=== PATIENT | female | born 1985 ===

== ENCOUNTER 2021-02-01 04:35 | Emergency (ER) | payer MEDICAID ==
--- NOTE | 2021-02-01 05:04 | EDM.PDOC ---
ED HPI GENERAL MEDICAL PROBLEM - General Chief Complaint: Abdominal Pain Stated Complaint: ABDOMINAL PAIN Time Seen by Provider: 02/01/21 04:45 Source of Information: Reports: Patient, EMS, RN History Limitations: Reports: Other (pain) - History of Present Illness INITIAL COMMENTS - FREE TEXT/NARRATIVE: Ms. Miranda presented to the ED w RUQ pain, started this AM an hour before arrival. She is a Diabetic with a cardiac history of congestive changes. She presents with sats in the 70s, tachypnea and has a fever. She has not taken anything for her symptoms. She ate a ham sandwich last night for dinner. Normal HRR, Lungs are CTA. No abdominal guarding. She is alert and oriented X 3. Onset: Today, Sudden Onset Date: 02/01/21 Onset Time: 03:00 Duration: Hour(s):, Constant Location: Reports: Chest, Abdomen Quality: Reports: Ache, Dull Severity: Moderate Improves with: Reports: None Worsens with: Reports: None Associated Symptoms: Reports: Chest Pain, Fever/Chills, Other (hypoxic) Right Abdominal Pain Score (Numeric/FACES): 10 - Related Data Allergies Allergy/AdvReac Type Severity Reaction Status Date / Time No Known Allergies Allergy Verified 02/01/21 05:12 Home Meds: Home Meds Aspirin [Ecotrin EC] 81 mg PO DAILY 02/01/21 [History] Escitalopram [Lexapro] 10 mg PO DAILY 02/01/21 [History] Ferrous Sulfate 325 mg PO DAILY 02/01/21 [History] Insulin Detemir [Levemir Flextouch] 20 units SQ BEDTIME 02/01/21 [History] Potassium Chloride [Klor-Con M20] 20 meq PO BID 02/01/21 [History] lisinopriL [Lisinopril] 10 mg PO DAILY 02/01/21 [History] ED ROS GENERAL - Review of Systems Review Of Systems: Comprehensive ROS is negative, except as noted in HPI. Respiratory: Reports: Shortness of Breath Cardiovascular: Reports: Chest Pain GI/Abdominal: Reports: Abdominal Pain Skin: Reports: Bruising ED EXAM, GI/ABD - Physical Exam Exam: See Below Exam Limited By: Other (pain) Eyes: Bilateral: Normal Appearance Ears: Normal External Exam Nose: Normal Inspection, Normal Mucosa, No Blood Throat/Mouth: Normal Inspection, Normal Lips, Other (poor dentition) Head: Atraumatic, Normocephalic Neck: Supple, Non-Tender Respiratory/Chest: Lungs Clear, Normal Breath Sounds, Wheezing, Other ( tackypnea) Cardiovascular: Regular Rate, Rhythm, No Edema GI/Abdominal Exam: Normal Bowel Sounds, Soft, Distended (Female) Exam: Deferred Rectal (Female) Exam: Deferred Back Exam: Other (unable to evaluate) Extremities: Normal Inspection, No Pedal Edema Neurological: Alert, Oriented, CN II-XII Intact, Normal Cognition Psychiatric: Normal Affect, Normal Mood Skin Exam: Warm, Dry, Intact, Other (easy bruising) Lymphatic: No Adenopathy #1 Interpretation EKG Date: 02/01/21 Time: 04:50 Rhythm: NSR Course - Vital Signs Last Recorded V/S: Last Vital Signs Temp 37.5 C 02/01/21 05:00 Pulse 100 02/01/21 05:00 Resp 20 02/01/21 05:00 BP 122/54 L 02/01/21 05:00 Pulse Ox 99 02/01/21 05:00 - Orders/Labs/Meds Orders: Active Orders 24 hr Category Date Time Status EKG Documentation Completion [RC] STAT Care 02/01/21 04:50 Active Chest Abdomen Pelvis w Cont [CT] Stat Exams 02/01/21 04:50 Ordered DD [D-DIMER QUANTITATIVE] [COAG] Stat Lab 02/01/21 05:58 Ordered EKG 12 Lead [EK] Routine Ther 02/01/21 04:50 Ordered Labs: Laboratory Tests 02/01/21 02/01/21 02/01/21 Range/Units 04:56 05:00 05:00 WBC 7.8 (4.0-11.0) K/uL RBC 4.52 (3.80-5.80) M/uL Hgb 11.3 L (11.5-16.5) g/dL Hct 38.4 (37.0-47.0) % MCV 85 (76-96) fL MCH 25.0 L (27.0-32.0) pg MCHC 29.4 L (31.0-35.0) g/dL RDW 22.9 H (11.0-16.0) % Plt Count 322 (150-500) K/uL MPV 9.2 (6.0-10.0) fL Neut % (Auto) 68.0 (45.0-70.0) % Lymph % (Auto) 24.6 (20.0-40.0) % Adams % (Auto) 6.6 (3.0-10.0) % Eos % (Auto) 0.5 L (1.0-5.0) % Baso % (Auto) 0.3 (0.0-0.5) % Neut # (Auto) 5.30 (2.00-7.50) K/uL Lymph # (Auto) 1.91 (1.50-4.00) K/uL Adams # (Auto) 0.51 (0.20-0.80) K/uL Eos # (Auto) 0.04 (0.04-0.40) K/uL Baso # (Auto) 0.02 (0.02-0.10) K/uL Sodium 138 (136-145) mmol/L Potassium 4.9 (3.5-5.1) mmol/L Chloride 100 (98-107) mmol/L Carbon Dioxide 32.0 (21.0-32.0) mmol/L Anion Gap 10.9 (5.0-15.0) mmol/L BUN 9 (8-26) mg/dL Creatinine 0.82 (0.55-1.02) mg/dL Est Cr Clr Drug Dosing TNP Estimated GFR (MDRD) > 60 (>60) MLS/MIN BUN/Creatinine Ratio 11.0 (6-25) Glucose 167 H (74-100) mg/dL Calcium 7.7 L (8.5-10.1) mg/dL Total Bilirubin 0.5 (0.0-1.0) mg/dL AST 35 (15-37) U/L ALT 42 (12-78) U/L Alkaline Phosphatase 86 (46-116) U/L Total Protein 7.2 (6.4-8.2) g/dL Albumin 2.3 L (3.4-5.0) g/dL Globulin 4.9 H (2.2-4.2) g/dL Albumin/Globulin Ratio 0.5 L (0.8-2.0) HCG, Qual (NEGATIVE) SARS CoV-2 RNA Rapid TONY Positive H 02/01/21 Range/Units 05:00 WBC (4.0-11.0) K/uL RBC (3.80-5.80) M/uL Hgb (11.5-16.5) g/dL Hct (37.0-47.0) % MCV (76-96) fL MCH (27.0-32.0) pg MCHC (31.0-35.0) g/dL RDW (11.0-16.0) % Plt Count (150-500) K/uL MPV (6.0-10.0) fL Neut % (Auto) (45.0-70.0) % Lymph % (Auto) (20.0-40.0) % Adams % (Auto) (3.0-10.0) % Eos % (Auto) (1.0-5.0) % Baso % (Auto) (0.0-0.5) % Neut # (Auto) (2.00-7.50) K/uL Lymph # (Auto) (1.50-4.00) K/uL Adams # (Auto) (0.20-0.80) K/uL Eos # (Auto) (0.04-0.40) K/uL Baso # (Auto) (0.02-0.10) K/uL Sodium (136-145) mmol/L Potassium (3.5-5.1) mmol/L Chloride (98-107) mmol/L Carbon Dioxide (21.0-32.0) mmol/L Anion Gap (5.0-15.0) mmol/L BUN (8-26) mg/dL Creatinine (0.55-1.02) mg/dL Est Cr Clr Drug Dosing Estimated GFR (MDRD) (>60) MLS/MIN BUN/Creatinine Ratio (6-25) Glucose (74-100) mg/dL Calcium (8.5-10.1) mg/dL Total Bilirubin (0.0-1.0) mg/dL AST (15-37) U/L ALT (12-78) U/L Alkaline Phosphatase (46-116) U/L Total Protein (6.4-8.2) g/dL Albumin (3.4-5.0) g/dL Globulin (2.2-4.2) g/dL Albumin/Globulin Ratio (0.8-2.0) HCG, Qual Negative (NEGATIVE) SARS CoV-2 RNA Rapid TONY Meds: Medications Discontinued Medications Generic Name Dose Route Start Last Admin Trade Name Curt PRN Reason Stop Dose Admin Hydromorphone HCl 2 mg 02/01/21 05:31 Hydromorphone 2 Mg/Ml Sdv IVPUSH 02/01/21 05:32 ONETIME ONE Departure - Departure Time of Disposition: 06:40 Disposition: DC/Tfer to Acute Hospital 02 Condition: Fair Clinical Impression: COVID-19, Respiratory distress - Discharge Information *PRESCRIPTION DRUG MONITORING PROGRAM REVIEWED*: Not Applicable *COPY OF PRESCRIPTION DRUG MONITORING REPORT IN PATIENT ZAIN: Not Applicable Forms: ED Department Discharge, ED Return to Work/School Form Care Plan Goals: Patient is being transferred to Critical Care unit per Dr. King at [facility]. Sepsis Event Note (ED) - Focused Exam Vital Signs: Vital Signs Temp Pulse Resp BP Pulse Ox 02/01/21 05:00 37.5 C 100 20 122/54 L 99 - Problem List & Annotations (1) COVID-19 SNOMED Code(s): 255364816 Code(s): U07.1 - COVID-19 Status: Acute Priority: High Current Visit: Yes (2) Respiratory distress SNOMED Code(s): 046746221 Code(s): R06.03 - ACUTE RESPIRATORY DISTRESS Status: Acute Priority: High Current Visit: Yes - Problem List Review Problem List Initiated/Reviewed/Updated: Yes - My Orders Last 24 Hours: My Active Orders 02/01/21 04:50 EKG Documentation Completion [RC] STAT Chest Abdomen Pelvis w Cont [CT] Stat EKG 12 Lead [EK] Routine 02/01/21 05:58 DD [D-DIMER QUANTITATIVE] [COAG] Stat - Assessment/Plan Last 24 Hours: My Active Orders 02/01/21 04:50 EKG Documentation Completion [RC] STAT Chest Abdomen Pelvis w Cont [CT] Stat EKG 12 Lead [EK] Routine 02/01/21 05:58 DD [D-DIMER QUANTITATIVE] [COAG] Stat Assessment:: COVID 19 Plan: Patient is being transferred to Critical Care unit per Dr. King at [facility]. This is where she has all of her Diabetic and Primary Care.
[2021-02-01] MEDS ORDERED: HYDROmorphone 2 MG/ML SDV IVPUSH ONE (05:31)
--- NOTE | 2021-02-01 09:52 | CT ---
DATE OF SERVICE: 02/01/21 CLINICAL DATA: chest pain ENHANCED CHEST CT: Multislice acquisition through the chest with IV contrast was performed. Motion artifact significantly degrades study quality. No priors. There are patchy ground glass opacities scattered throughout both lungs with scattered areas of consolidation throughout both lungs consistent with bilateral pneumonia. Consider viral pneumonia. No pleural effusions. No pneumothorax. No aortic aneurysm or dissection. The heart is mildly enlarged. No significant pericardial effusion. No hilar or mediastinal adenopathy. No other significant findings. IMPRESSION: Patchy ground glass opacities scattered throughout both lungs with patchy areas of consolidation scattered throughout both lungs. Viral pneumonia is suspected. The patient's physician was notified of the findings by [facility] preliminary radiology report. ENHANCED ABDOMEN AND PELVIC CT: Multislice acquisition through the abdomen and pelvis with IV, but without oral contrast was performed. No priors. Breathing motion artifact significantly degrades image quality. There is mild diffuse fatty infiltration of the liver. No focal hepatic lesions. The gallbladder appears normal. No biliary duct dilatation. The spleen appears normal. The pancreas appears normal. The right and left adrenals appear normal. The right and left kidneys enhance symmetrically. No hydronephrosis or hydroureter. The bladder is partially fluid-filled. It appears normal. There is a 6.9 cm septated near fluid density mass in the right ovary. The uterus and left adnexa appear unremarkable. No evidence of appendicitis. No free air. No free fluid. No dilated loops of bowel. No adenopathy. No aortic aneurysm or dissection. IMPRESSION: 1. Septated near fluid density mass right ovary. The possibility of a cystic ovarian neoplasm should be considered and followup ultrasound is recommended to confirm resolution. 2. Other findings as discussed above. JOB #[id number] [facility]
== END 2021-02-01 09:00 ==
LOC: LB.ED 04:35
DX: U07.1 COVID-19 (principal); R10.11 Right upper quadrant pain; E10.9 Type 1 diabetes mellitus without complications; I50.9 Heart failure, unspecified; Z79.82 Long term (current) use of aspirin; Z79.899 Other long term (current) drug therapy
CPT/HCPCS: 36415; 71260; 74177; 80053; 84703; 85025; 85379; 93005; 96374; 99285-25; A0425; A0429; J1170; U0002